=== PATIENT | male | born 1965 | race Caucasian/White ===

== ENCOUNTER 2020-01-08 16:00 | Inpatient (IN) | payer BC ==
[~2020-01-08] VITALS: Ht 181 cm; Wt 104.5 kg
[2020-01-08] VITALS (10 sets, daily range): BP systolic 129–157; BP diastolic 79–96
[2020-01-08] MEDS ORDERED: aspirin 81mg tab.chew PO ONE (16:10)
[2020-01-08] MEDS ORDERED: nitroGLYCERIN 0.4mg SUBLingual tab SL PRN (16:10)
[2020-01-08] MEDS ORDERED: heparin 25,000 UNIT/250ml bag 250 ML IV SCH (16:11)
[2020-01-08] MEDS ORDERED: heparin 10,000 units/1 ML INJ IV ONE ×2 (16:15→16:25)
[2020-01-08] MEDS ORDERED: heparin 10,000 units/1 ML INJ IV PRN (16:15)
[2020-01-08 16:35] LABS: HEMOGLOBIN 14.1 g/dl (14.0-17.9)
[2020-01-08 16:37] LABS: BASOPHILS # (AUTO) 0.1 X10'3 (0-0.2); BASOPHILS % (AUTO) 0.5 % (0-1); EOSINOPHILS % (AUTO) 0.1 % (0-6); HEMATOCRIT 41.6 % (42.0-52.0); LYMPHOCYTES # (AUTO) 1.7 X10'3 (1.1-4.8); LYMPHOCYTES % (AUTO) 12.8 % (21-51); MEAN CORPUSCULAR HEMOGLOBIN 33.2 PG (27.0-31.0); MEAN CORPUSCULAR VOLUME 97.8 FL (78-98); MEAN PLATELET VOLUME 8.3 FL (7.4-10.4); MONOCYTES # (AUTO) 0.5 X10'3 (0-0.9); MONOCYTES % (AUTO) 3.6 % (2-12); NEUTROPHILS # (AUTO) 11.3 X10'3 (1.8-7.7); PLATELET COUNT 275 X10'3 (140-440); RED BLOOD COUNT 4.26 X10'6 (4.70-6.10); RED CELL DISTRIBUTION WIDTH 13.6 % (11.5-14.5); WHITE BLOOD COUNT 13.7 X10'3 (4.5-11.0)
[2020-01-08 16:46] LABS: PARTIAL THROMBOPLASTIN TIME 26 SECONDS (22-32)
[2020-01-08 16:49] LABS: ALANINE AMINOTRANSFERASE 33 U/L (12-78); ALBUMIN 3.7 G/DL (3.4-5.0); ALBUMIN/GLOBULIN RATIO 1.1 (1.1-1.5); ALKALINE PHOSPHATASE 58 IU/L (46-116); ANION GAP 9 (8-16); ASPARTATE AMINO TRANSFERASE 34 U/L (10-37); BILIRUBIN,TOTAL 0.2 MG/DL (0.1-1.0); BLOOD UREA NITROGEN 18 MG/DL (7-18); BUN/CREATININE RATIO 20.7 (5.4-32.0); CALCIUM 8.8 MG/DL (8.5-10.1); CHLORIDE 106 MMOL/L (99-107); CREATININE 0.87 MG/DL (0.60-1.10); GLUCOSE 118 MG/DL (70-104); POTASSIUM 3.9 MMOL/L (3.5-5.1); SODIUM 141 MMOL/L (135-145); TOTAL CARBON DIOXIDE 26.1 MMOL/L (24-32); TOTAL PROTEIN 7.1 G/DL (6.4-8.2); eGFR > 90 ML/MIN
[2020-01-08] MEDS ORDERED: NO HOME MEDS (16:52)
[2020-01-08 16:57] LABS: MAGNESIUM 1.7 MG/DL (1.5-2.4)
[2020-01-08] MEDS ORDERED: iohexol 350 MG/1 ML 200ml bottle ONE (17:05)
[2020-01-08] MEDS ORDERED: fentaNYL/PF 50MCG/1 ML 2ML syringe ONE (17:07)
[2020-01-08] MEDS ORDERED: midazolam 2 mg/2 ml injection ONE (17:07)
--- NOTE | 2020-01-08 17:15 | NUR ---
bedside report given to RAMONA Hemphill from manager laboratory at this time.
--- NOTE | 2020-01-08 17:17 | NUR ---
Patient to clinical lab assistant via [place], awake, alert, no signs of distress noted, Dr Headley received patient.
--- NOTE | 2020-01-08 17:31 | NUR ---
CALL TO WILIAN LAU AT THIS TIME TO INFORM HER PATIENT HAS BEEN TAKEN TO [facility] [facility]. [phone].
[2020-01-08] MEDS ORDERED: ticagrelor 90mg tablet ONE (17:35)
--- NOTE | 2020-01-08 18:00 | NUR ---
Patient in room PCU 3027. I have received report from Lin GREENE and had the opportunity to ask questions and assume patient care.
--- NOTE | 2020-01-08 18:02 | NUR ---
Patient in room . I have received report from TYE GREENE and had the opportunity to ask questions and assume patient care.
--- NOTE | 2020-01-08 18:26 | NUR ---
RECEIVED PT IN STABLE CONDITION. RIGHT GROIN ACCESS SITE SHOWS NO HEMATOMA. POST OP VITALS GOING. WILL CONTINUE TO MONITOR
--- NOTE | 2020-01-08 18:29 | NUR ---
POST OP MED ORDER SHOWS NO ANTICOAGS. LEFT MESSAGE WITH DR CABRAL OFFICE THEY WILL PAGE HIM
--- NOTE | 2020-01-08 18:48 | NUR ---
Problems reprioritized. Patient report given, questions answered & plan of care reviewed with Luis Miguel RN. Patient stable at transfer of care.
--- NOTE | 2020-01-08 19:36 | NUR ---
Spoke with Dr. Wray answering service regarding patients anticoagulation medication. Was told to call again if no answer is 20 minutes.
[2020-01-08] MEDS ORDERED: ondansetron/PF 4mg/2ml inj IV PRN ×2 (20:05→20:25)
[2020-01-08] MEDS ORDERED: HYDROcodone/acetaminophen 5mg/325mg tablet PO PRN (20:05)
[2020-01-08] MEDS ORDERED: HYDROcodone/acetaminophen 10/325mg tab PO PRN (20:05)
[2020-01-08] MEDS ORDERED: proCHLORperazine 10 MG/2 ml inj IV PRN (20:05)
[2020-01-08] MEDS ORDERED: OXAZEpam 15mg capsule PO PRN (20:05)
[2020-01-08] MEDS ORDERED: acetaminophen 325mg tablet PO PRN (20:05)
[2020-01-08] MEDS: ticagrelor 90mg tablet PO SCH (21:07)
[2020-01-08] MEDS: metoprolol tartrate 25mg tablet PO SCH (21:08)
[2020-01-09 02:00] VITALS: BP 139/84
[2020-01-09 05:06] LABS: BASOPHILS % (AUTO) 0.3 % (0-1); EOSINOPHILS # (AUTO) 0.1 X10'3 (0-0.9); EOSINOPHILS % (AUTO) 0.8 % (0-6); HEMATOCRIT 40.4 % (42.0-52.0); HEMOGLOBIN 13.6 g/dl (14.0-17.9); LYMPHOCYTES % (AUTO) 19.7 % (21-51); MEAN CORPUSCULAR HGB CONC 33.8 g/dL (33.0-36.5); MEAN CORPUSCULAR VOLUME 97.7 FL (78-98); MEAN PLATELET VOLUME 8.5 FL (7.4-10.4); MONOCYTES # (AUTO) 1.2 X10'3 (0-0.9); MONOCYTES % (AUTO) 7.7 % (2-12); NEUTROPHILS # (AUTO) 10.9 X10'3 (1.8-7.7); NEUTROPHILS % (AUTO) 71.5 % (42-75); PLATELET COUNT 267 X10'3 (140-440); RED BLOOD COUNT 4.14 X10'6 (4.70-6.10); RED CELL DISTRIBUTION WIDTH 13.5 % (11.5-14.5); WHITE BLOOD COUNT 15.3 X10'3 (4.5-11.0)
[2020-01-09 05:51] LABS: ALBUMIN 3.4 G/DL (3.4-5.0); ANION GAP 9 (8-16); BLOOD UREA NITROGEN 13 MG/DL (7-18); BUN/CREATININE RATIO 15.7 (5.4-32.0); CALCIUM 8.8 MG/DL (8.5-10.1); CHLORIDE 107 MMOL/L (99-107); CREATININE 0.83 MG/DL (0.60-1.10); GLUCOSE 117 MG/DL (70-104); POTASSIUM 3.7 MMOL/L (3.5-5.1); SODIUM 141 MMOL/L (135-145); TOTAL CARBON DIOXIDE 25.2 MMOL/L (24-32); eGFR > 90 ML/MIN
--- NOTE | 2020-01-09 06:14 | NUR ---
Problems reprioritized. Patient report given, questions answered & plan of care reviewed with Catrina GREENE.
--- NOTE | 2020-01-09 06:36 | NUR ---
Patient in room PCU 3027. I have received report from Luis Miguel GREENE and had the opportunity to ask questions and assume patient care.
--- NOTE | 2020-01-09 06:37 | NUR ---
Patient in room PCU 3027. I have received report from RAMONA Bolanos and had the opportunity to ask questions and assume patient care. Patient awake in bed with no complaints. Assessed groin site. No bruising or hematoma noted.
[2020-01-09 07:00] VITALS: BP 144/83
[2020-01-09] MEDS: metoprolol tartrate 25mg tablet PO SCH ×2 (07:49→19:08)
[2020-01-09] MEDS: ticagrelor 90mg tablet PO SCH ×2 (07:49→19:07)
[2020-01-09] MEDS ORDERED: atorvastatin 20mg tablet PO SCH (08:00)
[2020-01-09] MEDS ORDERED: aspirin 81mg tablet.DR PO SCH (08:00)
[2020-01-09 08:25] LABS: CHOL/HDL RATIO 5.4 (0.00-4.99); CHOLESTEROL 182 MG/DL (0-200); HDL CHOLESTEROL 34 MG/DL (35-60); LDL CHOLESTEROL 124 MG/DL (50-100); TRIGLYCERIDES 129 MG/DL (20-135)
[2020-01-09 11:00] VITALS: BP 122/72
[2020-01-09 18:00] VITALS: BP 107/66
--- NOTE | 2020-01-09 18:14 | NUR ---
Problems reprioritized. Patient report given, questions answered & plan of care reviewed with RAMONA Nieto. Patient stable at transfer of care.
--- NOTE | 2020-01-09 18:26 | NUR ---
[place] documentation: I have reviewed and agree with all interventions, assessments performed and documented by RAMONA Thomas. [place] Medication Administration: For this medication-pass time frame, all medication were reviewed, dispensed, administered and documented per hospital policy by RAMONA Thomas.
[2020-01-10 02:00] VITALS: BP 104/61
[2020-01-10 05:30] LABS: BASOPHILS # (AUTO) 0.1 X10'3 (0-0.2); BASOPHILS % (AUTO) 0.5 % (0-1); EOSINOPHILS # (AUTO) 0.5 X10'3 (0-0.9); EOSINOPHILS % (AUTO) 3.9 % (0-6); HEMATOCRIT 44.5 % (42.0-52.0); HEMOGLOBIN 14.7 g/dl (14.0-17.9); LYMPHOCYTES # (AUTO) 3.2 X10'3 (1.1-4.8); LYMPHOCYTES % (AUTO) 25.5 % (21-51); MEAN CORPUSCULAR HEMOGLOBIN 32.6 PG (27.0-31.0); MEAN CORPUSCULAR HGB CONC 33.1 g/dL (33.0-36.5); MEAN CORPUSCULAR VOLUME 98.5 FL (78-98); MEAN PLATELET VOLUME 8.9 FL (7.4-10.4); MONOCYTES # (AUTO) 1.2 X10'3 (0-0.9); MONOCYTES % (AUTO) 9.5 % (2-12); NEUTROPHILS # (AUTO) 7.5 X10'3 (1.8-7.7); NEUTROPHILS % (AUTO) 60.6 % (42-75); PLATELET COUNT 272 X10'3 (140-440); RED BLOOD COUNT 4.52 X10'6 (4.70-6.10); RED CELL DISTRIBUTION WIDTH 13.7 % (11.5-14.5); WHITE BLOOD COUNT 12.4 X10'3 (4.5-11.0)
[2020-01-10 05:31] LABS: ALBUMIN 3.4 G/DL (3.4-5.0); ANION GAP 8 (8-16); BLOOD UREA NITROGEN 17 MG/DL (7-18); BUN/CREATININE RATIO 21.3 (5.4-32.0); CALCIUM 8.9 MG/DL (8.5-10.1); CHLORIDE 105 MMOL/L (99-107); GLUCOSE 109 MG/DL (70-104); SODIUM 140 MMOL/L (135-145); TOTAL CARBON DIOXIDE 26.7 MMOL/L (24-32); eGFR > 90 ML/MIN
[2020-01-10] MEDS ORDERED: ATOR40TA PO (06:15)
[2020-01-10] MEDS ORDERED: ASPI-1071 PO (06:15)
[2020-01-10] MEDS ORDERED: NITR0.4T51 SL (06:15)
[2020-01-10] MEDS ORDERED: METO25TA6 PO (06:15)
[2020-01-10] MEDS ORDERED: TICA90TA PO (06:15)
--- NOTE | 2020-01-10 06:28 | NUR ---
Problems reprioritized. Patient report given, questions answered & plan of care reviewed with RAMONA Fong.
[2020-01-10 07:00] VITALS: BP 100/56
--- NOTE | 2020-01-10 09:19 | NUR ---
Patient is stable for discharge per MD order. All discharge information and education reviewed with patient before signing necessary paperwork. IV's removed with catheters in tact, monitoring engineer removed and returned, all patient belongings packed and sent up with patient. [facility]. New Rx called in to [facility] in [place]. Called Dr. Headley's office to make FU appointment, staff informed me that the person who handles the intake of new patients wont be there until 1000. Will call back to make appointment and call patient with appointment date and time. Addendum: 01/10/20 at 0935 by Hetal Kumar RN Patient was offered his medications before leaving, he declined and stated he would take them when gets home.
--- NOTE | 2020-01-10 13:02 | NUR ---
Contacted Dr. Headley's office to arrange FU appointment, they informed me they have been in contact with the patient and will contact him with the next available appointment date.
== END 2020-01-10 09:01 | disposition home or self-care (01) | DRG 247 ==
LOC: ER 16:00 → UNDOADMIN 19:33 → PCU 3S 19:33
PROVIDERS: ADMIT Internal Medicine Interventional Cardiology; ATTEND Internal Medicine Interventional Cardiology
PROC: 4A023N7 Measurement of Cardiac Sampling and Pressure, Left Heart, Percutaneous Approach (ICD-10-PCS; principal; 2020-01-08)
PROC: 027034Z Dilation of Coronary Artery, One Artery with Drug-eluting Intraluminal Device, Percutaneous Approach (ICD-10-PCS; 2020-01-08)
PROC: B2111ZZ Fluoroscopy of Multiple Coronary Arteries using Low Osmolar Contrast (ICD-10-PCS; 2020-01-08)
PROC: B2151ZZ Fluoroscopy of Left Heart using Low Osmolar Contrast (ICD-10-PCS; 2020-01-08)
DX: I21.3 ST elevation (STEMI) myocardial infarction of unspecified site (principal); F17.210 Nicotine dependence, cigarettes, uncomplicated; I10 Essential (primary) hypertension; I25.10 Atherosclerotic heart disease of native coronary artery without angina pectoris; Z79.82 Long term (current) use of aspirin; Z79.899 Other long term (current) drug therapy; Z96.653 Presence of artificial knee joint, bilateral
CPT/HCPCS: 93306; 93458; 96374; 99291; C9606; 36415; 71045; 80048; 80053; 80061; 83735; 83880; 84484; 85025; 85610; 85730; 93005; 99152; 99153; C1725; C1751; C1760; C1769; C1874; C9600; G0378; J1644; J2250; J3010; Q9967